=== PATIENT | female | born 1960 | race Caucasian/White ===

== ENCOUNTER → 2018-07-22 | Outpatient (CLI) | payer BC ==
--- NOTE | 2018-07-22 18:27 | RADIOLOGY IMAGING REPORT ---
FACILITY: [facility] - [place] PATIENT NAME: Shira Garcia : 1960 MR: [id number] V: [id number] EXAM DATE: ORDERING PHYSICIAN: NATHALIE PENG TECHNOLOGIST: Location: [facility] - [place] Patient: Shira Garcia : 1960 Visit/Account:[id number] Date of Sevice: 07/22/2018 ABDOMEN AP ERECT AND/OR DECUB History: Left lower quadrant pain with change in stool caliber. Comparison study: None. Findings: Chest: There is no abnormality in either lung base. ABDOMEN: There are no dilated loops of large or small bowel suggest ileus or obstruction. The bladde r appears distended. The bony structures are unremarkable. IMPRESSION: 1. Nonspecific bowel gas pattern without findings of ileus or obstruction. Report Dictated By: Lloyd Hoyt MD at 07/22/2018 6:21 PM Report E-Signed By: Lloyd Hoyt MD at 07/22/2018 6:22 PM WSN:[email or web address]
== END ==
LOC: RAD 16:45
PROVIDERS: ATTEND Nurse Practitioner Family
DX: R10.32 Left lower quadrant pain (principal)
CPT/HCPCS: 74019

== ENCOUNTER → 2018-08-04 | Outpatient (CLI) | payer BC ==
[~2018-08-04] MED LIST: IOPAMIDOL 76% 150 ML INFUS BTL 150 ML ONE
[2018-08-04 07:54] LABS: PLATELET COUNT, AUTOMATED 439 K/uL (150-450)
== END ==
LOC: CT 02:04
PROVIDERS: ATTEND Nurse Practitioner Family
DX: R10.32 Left lower quadrant pain (principal)
CPT/HCPCS: 36415; 85025; Q9967; 82040; 82247; 82310; 82374; 82435; 82565; 82947; 84075; 84132; 84155; 84295; 84450; 84460; 84520

== ENCOUNTER → 2018-08-12 | Outpatient (CLI) | payer BC ==
--- NOTE | 2018-08-12 09:43 | RADIOLOGY IMAGING REPORT ---
FACILITY: [facility] PATIENT NAME: Shira Garcia : 1960 MR: [id number] V: [id number] EXAM DATE: ORDERING PHYSICIAN: NATHALIE PENG TECHNOLOGIST: Location: [facility] - [place], [place] Patient: Shira Garcia : 1960 Visit/Account:[id number] Date of Sevice: 08/12/2018 CT ABDOMEN PELVIS W/ CON HISTORY: Left lower quadrant pain and constipation TECHNIQUE: Following administration of IV contrast contiguous axial images acquired through the abdom en/pelvis. Coronal and sagittal reformatting also performed.Dose Lowering Technique One of the following dose optimization techniques was utilized in the performance of this exam: Autom ated exposure control; adjustment of the mA and/or kV according to the patient's size; or use of an i terative reconstruction technique. Specific details can be referenced in the facility's radiology C T exam operational policy. CONTRAST: 75 mL Isovue-370 COMPARISON: None. FINDINGS: Visualized lung bases: Calcified granulomas Hepatobiliary: Mild hepatomegaly Spleen: Calcified granulomas Adrenals: Negative. Pancreas: There is a 9 x 6 mm fatty lesion in the head of the pancreas Kidneys ureters or bladder: Negative. Genitalia: There is a huge complex pelvic mass extending out of the pelvis with cephalad extension t owards the left. This mass measures approximately 14.6 cm in width approximately 15.4 cm in height a nd approximately 11.4 cm in AP dimension the mass contains solid enhancing components and cystic comp onents normal-appearing uterus is not identified and appears to be completely distorted by the mass GI: There is marked mass effect on the sigmoid colon which is displaced towards the right of midline and drapes over the superior aspect of the pelvic mass. There is no evidence of bowel obstruction B y the large pelvic mass Vessels/spaces/nodes: There are numerous dilated vessels within the pelvis and dilatation of the jina cooper veins bilaterally. The left gonadal vein is duplicated and drains into both the left renal vein and the splenic vein there are small bilateral external iliac lymph nodes all measuring less than 1 cm Bones/soft tissues: Negative. Additional findings: None pertinent. IMPRESSION: There is a huge complex pelvic mass as described above producing extensive mass effect on the sigmoid colon which is displaced to the right of midline and drapes superiorly over this mass.. This findin gs extremely concerning for malignancy There is a 9 x 6 mm fatty lesion in the head of the pancreas. This likely represents an incidental l ipoma. Other considerations although much less likely would be a dermoid or liposarcoma. Report Dictated By: Eliza Trimble MD at 08/12/2018 9:06 AM Report E-Signed By: Eliza Trimble MD at 08/12/2018 9:39 AM WSN:[email or web address]
== END ==
LOC: CT 01:33
PROVIDERS: ATTEND Nurse Practitioner Family
DX: R91.8 Other nonspecific abnormal finding of lung field (principal); R16.0 Hepatomegaly, not elsewhere classified; D73.89 Other diseases of spleen; R19.09 Other intra-abdominal and pelvic swelling, mass and lump
CPT/HCPCS: 74177; Q9967

== ENCOUNTER → 2018-08-14 | Outpatient (CLI) | payer BC ==
[2018-08-14 16:12] LABS: PLATELET COUNT, AUTOMATED 487 K/uL (150-450)
--- NOTE | 2018-08-14 18:36 | EKG ---
FACILITY: [facility] PATIENT NAME: RAMESH SHELTON : [id number] MR: [id number] V: [id number] EXAM DATE: ORDERING PHYSICIAN: BON COATES TECHNOLOGIST: Test Reason : R19.00, Z01.818 Blood Pressure : / mmHG Vent. Rate : 073 BPM Atrial Rate : 073 BPM P-R Int : 132 ms QRS Dur : 088 ms QT Int : 394 ms P-R-T Axes : 072 033 048 degrees QTc Int : 434 ms Normal sinus rhythm Possible Left atrial enlargement Septal infarct , age undetermined No ST-T abnormalities No previous ECGs available Confirmed by TORITO WHITAKER ([id number]) on 08/14/2018 9:12:46 PM Referred By: Confirmed By:TORITO WHITAKER
== END ==
LOC: LAB 15:33
PROVIDERS: ATTEND Nurse Practitioner Family
DX: Z01.818 Encounter for other preprocedural examination (principal); R19.00 Intra-abdominal and pelvic swelling, mass and lump, unspecified site
CPT/HCPCS: 36415; 82040; 82247; 82310; 82374; 82435; 82565; 82947; 84075; 84132; 84155; 84295; 84450; 84460; 84520; 85025; 86304; 86850; 86870; 86900; 86901; 93005

== ENCOUNTER → 2018-09-15 | Emergency (ER) | payer BC ==
[~2018-09-15] MED LIST changes: +ALLERGY SHOTS SC; -IOPAMIDOL 76% 150 ML INFUS BTL 150 ML ONE; +LORA-630 PO; +ONDA4TAB9 PO; +PROC-5 PO
--- NOTE | 2018-09-16 09:41 | NUR ---
Nurse returned a call from the patient yesterday @ 1114. She stated that she had begun to develop a "brown vaginal discharge" on Saturday last week. She states that now she is certain that she is "passing fecal matter out of her vagina". Nurse advised her to contact her surgeon in [place] immediately. She stated that she had called and left a message and was waiting for a return call. Nurse advised her to call again and notify them that the call was urgent. Nurse also advised her that if she had not hear from her surgeon's office by close of day today that she should go into the ER. She verbalized understanding and agreed with the plan of care. September 16 @ 0915: Nurse called patient's cell this morning and her daughter, Anamaria, answered. She stated that the [facility] ER had recommended that she go to [facility] (where her surgery was performed). The daughter stated that her mom was admitted and that the plan was for surgery this evening. She stated that she needed to contact Dr. Billy's office and cancel the port placement scheduled for 09/18/18. The nurse stated that she would take care of that for them. Nurse also stated that she would call and check on them later this week. The daughter verbalized understanding.
--- NOTE | 2018-10-09 07:44 | ER Report ---
History and Physical Time Seen By MD: 07:43 HPI/ROS CHIEF COMPLAINT: Postop complication HISTORY OF PRESENT ILLNESS: Patient is a 4-year-old female status post vaginal procedure an outside facility came in with a report of discharge of brown possible fecal matter from her vagina had called her doctor sent her here to the emergency department patient's denying any additional pain at this time as of this started about 24-48 hours prior to presentation REVIEW OF SYSTEMS: Respiratory: No cough, no dyspnea. Cardiovascular: No chest pain, no palpitations. Gastrointestinal: No vomiting, no abdominal pain. Musculoskeletal: No back pain. Remainder of the 14 system rev: Yes Allergies: Coded Allergies: adhesive tape (Verified Allergy, Intermediate, HIVES,BLISTERS TURNS INTO SORES, 09/15/18) Uncoded Allergies: CONTRAST IODINE (Allergy, Severe, MOUTH,TONGUE,LIPS TINGLE, 09/15/18) Home Meds Active Scripts Prochlorperazine Maleate (PROCHLORPERAZINE MALEATE) 10 Mg Tablet, 10 MG PO Q 6H PRN for NAUSEA/VOMITING for 10 Days, #30 TAB 0 Refills Take 1 Tablet PO Q 6 Hours PRN chemo-induced N/V Prov:JOO MAURER APRN,STORE HOST 10/07/18 Lorazepam (LORAZEPAM) 0.5 Mg Tablet, 0.5 MG PO Q 8 hours PRN for NAUSEA/VOMITING for 10 Days, #30 MG 0 Refills Take 1 or 2 tabs Q 8 hours PRN chemo-induced N/V or anxiety Prov:JOO MAURER APRN,STORE HOST 10/07/18 Ondansetron 4 Mg Odt (ONDANSETRON 4 MG ODT) 4 Mg Tab.rapdis, 8 MG PO ONCE PRN for NAUSEA/VOMITING for 7 Days, #20 TAB 0 Refills Take total of 8 mg (or two 4 mg Tabs) ODT SL Q 8 hours PRN chemo-induced N/V Prov:JOO MAURER APRN, FNP 10/07/18 Reported Medications [Allergy Shots] No Conflict Check, 2 SC 2XW 09/15/18 Reviewed Nurses Notes: Yes Old Medical Records Reviewed: Yes Hx Smoking: No Smoking Status: Never Smoker Hx Alcohol Use: Yes Physical Exam General Appearance: The patient is alert, has no immediate need for airway protection and no current signs of toxicity. [ ] Eyes: Pupils equal and round no injection. Respiratory: Chest is non tender, lungs are clear to auscultation. Cardiac: regular rate and rhythm [ ] Gastrointestinal: Abdomen is soft and non tender, no masses, bowel sounds normal. Musculoskeletal: Neck: Neck is supple and non tender. Extremities have full range of motion and are non tender. Skin: No rashes or lesions. Pelvic exam deferred per patient DIFFERENTIAL DIAGNOSIS: After history and physical exam differential diagnosis was considered for fistula Medical Decision Making ED Course/Re-evaluation ED Course ED course 58-year-old female who presented emergency department today with a complaint of fecal matter from her vagina status post procedure most likely has a fistula contacted the surgeon who performed the procedure he did not want any additional testing or done here in the emergency department once her to become immediately to the clinic patient was discharged accordingly Decision to Disposition Date: October 09, 2018 Decision to Disposition Time: 07:44 Depart Departure Impression: Primary Impression: Vaginal fistula Additional Impression: Recto-vaginal fistula Condition: Condition Unchanged Disposition: HOME OR SELF-CARE Referrals: NATHALIE PENG APRN (PCP) Problem Qualifiers VON PHIPPS MD October 09, 2018 07:44
== END ==
LOC: ER 11:53
DX: N82.3 Fistula of vagina to large intestine (principal)
CPT/HCPCS: 99281

== ENCOUNTER 2018-12-08 10:55 | Outpatient (RCR) | payer BC ==
[2018-09-11 15:02] VITALS: BP 105/64
--- NOTE | 2018-09-11 22:05 | ONCOLOGY CONSULTATION ---
EVENT DATE: September 11, 2018 REFERRING PHYSICIAN Tammy Lewis APRN REASON FOR CONSULTATION Evaluation and management of ovarian cancer. ONCOLOGY HISTORY Patient is a 58-year-old female who presented with abdominal pain, and the patient had a CT of the abdomen done on the August, which showed a huge complex pelvic mass extending out of the pelvis. The mass was 14.6 cm x 15.4 cm x 11.4 cm. Her CA-125 done on the August was 1566. Patient has been evaluated by Dr. Pravin Kennedy, and she had radical ovarian carcinoma debulking procedure with total abdominal hysterectomy, bilateral salpingo- oophorectomy, and generalized tumor debulking of the abdomen and pelvis, with total omentectomy, with multiple large bowel tumor excisions without bowel serosa repair. The surgery started by laparoscopic da Mike robotic laparoscopy with multiple peritoneal excisions, but after that, patient had open laparotomy because the left ureter was not seen through the laparoscopic surgery. Her pathology from the surgery came back positive for adenocarcinoma, consistent with high-grade serous type. The sigmoid serosa was positive for metastatic carcinoma. The hysterectomy, the cervix showed positivity for adenocarcinoma with high-grade serous features. Myometrium showed leiomyoma and serosal involvement by poorly differentiated adenocarcinoma. So, the patient's tumor was staged as stage IIIC given that it involves both the pelvis and the abdomen. PAST MEDICAL HISTORY 1. Endometriosis, status post laparoscopic surgery x2. 2. Irritable bowel syndrome. 3. Celiac disease. 4. History of thyroid nodules. 5. Left breast papilloma, status post resection. PAST SURGICAL HISTORY 1. 1991. 2. Appendectomy 1967. 3. Tonsillectomy 1967. 4. Laparoscopy x3 in 1987, 1989, and 1991. 5. Left breast papilloma resection in 2008. FAMILY HISTORY Mother had breast cancer at age 60. SOCIAL HISTORY Patient is with three children. 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 Denies any abuse of tobacco, alcohol, or drugs, but she drinks a glass of wine nearly once a month. CURRENT MEDICATIONS None. ALLERGIES TAPE which causes hives and IODINE. REVIEW OF SYSTEMS CONSTITUTIONAL: No appetite or weight change. No fever, chills, or sweating. No recent infection. HEENT: Ears: No tinnitus or hearing problem. Nose: No nasal discharge or epistaxis. Throat: No sore throat or mouth ulcers. Eyes: No diplopia or visual changes. RESPIRATORY: No shortness of breath. No cough, expectoration, or hemoptysis. CARDIOVASCULAR: No chest pain, orthopnea, or paroxysmal nocturnal dyspnea (PND). No edema. No palpitations. GASTROINTESTINAL: No nausea or vomiting. No diarrhea or constipation. No change in bowel movements. No heartburn or swallowing difficulties. No abdominal pain. No jaundice. No hematemesis, melena, or rectal bleeding. GENITOURINARY: No hematuria or dysuria. MUSCULOSKELETAL: No pain in the muscles, joints, or bones. NEUROLOGIC: No tingling or numbness in the hands or feet. No headaches or convulsions. HEMATOLOGIC/LYMPHATIC: No bleeding or easy bruising. She has weakness and fatigue after her surgery, but other than that, she is doing really very well. No enlarged lymph nodes. SKIN: No skin rash or lumps. PSYCHIATRIC: No anxiety or depression. PHYSICAL EXAMINATION GENERAL: Looks stable. Well developed, well nourished, and in no acute distress. VITAL SIGNS: Blood pressure 105/64, pulse 96 per minute, respirations 16 per minute, temperature 97.3, pulse ox 93% on room air. HEENT: Head: Atraumatic. No sinus tenderness to palpation. Eyes: No icterus or conjunctivitis. Mouth and Throat: No oral thrush or mucositis. NECK: Supple. No cervical or supraclavicular lymphadenopathy. LUNGS: Clear to auscultation and percussion bilaterally. HEART: Regular rate and rhythm. No gallops, murmurs, clicks, or rubs. ABDOMEN: Soft and lax. No tenderness. No hepatosplenomegaly. No masses. EXTREMITIES: No cyanosis, clubbing, or edema. LYMPHATICS: No peripheral lymphadenopathy. NEUROLOGIC: Conscious, alert, and oriented times three. No focal motor or sensory deficits. PSYCHIATRIC: Mood and affect appear normal. SKIN: No skin rash, bruise, or purpuric eruption. 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 I had a long discussion with the patient and her today regarding further management. I am planning to treat her with six cycles of carboplatin and Taxol, which are the National Comprehensive Cancer Network (NCCN) guideline recommendations and the standard of care. I spent a long time with them explaining the plan of management and the side effects expected from chemotherapy. Patient was offered also for venous access, either peripherally inserted center catheter line or central port, and she elected to have a central port. For placement of the central port, I am planning to refer the patient to Dr. Billy to do that. I am planning to start her treatment next week with carboplatin and Taxol. I am planning to check her blood counts every week after starting treatment, and her treatment will be repeated every three weeks. I will consider treatment with Neulasta if the patient develops neutropenia during her treatment. I plan to check her tumor marker before we start her chemotherapy. As ovarian cancer now has option of the PARP inhibitors, but those are for patients who carry the mutations of BRCA1 and BRCA2, I am planning also to check that for her. I will see the patient in a week to start her chemotherapy with carboplatin and Taxol after placement of the central port. PLAN 1. Surgical consult for placement of central port. 2. CBC, chem panel, CA-125, and genetic mutation with BRCA1 and BRCA2 prior to starting her treatment. 3. Patient to return in a week to start her chemotherapy with carboplatin and Taxol. 4. Patient to contact us for any new concerns or complaints. [facility]
[2018-10-07 11:39] VITALS: BP 111/67
--- NOTE | 2018-10-08 14:42 | ONCOLOGY CHEMO TEACHING ---
EVENT DATE: October 07, 2018 DIAGNOSES 1. Stage IIIC poorly differentiated adenocarcinoma, high-grade. 2. Recent colovesicular fistula, status post ostomy placement. The patient is seen today for chemotherapy teaching. A total of 60 minutes was spent with her, 100% of which was [id number] counseling. HISTORY OF PRESENT ILLNESS Shira is a 58-year old woman with stage IIIC ovarian adenocarcinoma. She recently saw us and plan was made to initiate chemotherapy with carbo/Taxol. She had her port placed on September 18, 2018. In the interim, patient apparently began to have fecal matter expel vaginally and was seen in emergency and diagnosed with colovesicular fistula. She required immediate surgery, which was done on September 18, 2018, along with port placement. She now has ileostomy placement. Plan is for her to have ostomy reversal post treatment. She follows up with Dr. Pravin Kennedy, HEALTH PHYSICS TECHNICIAN/ONC in [place]. She reports that she overall has been managing pretty well with her new ostomy. She is very concerned about chemotherapy and tells me that she has significant dietary restrictions due to her Celiac disease as well as her IBS. She tells me that she had Celiac disease diagnosed approximately 20 years ago, endometriosis 40 years ago as well as IBS. She cannot take any foods that have corn. She tells me that she cannot even take Tums for indigestion as there is corn in Tums as well as food coloring that she is sensitive to GI hui. She is accompanied today by her . She is scheduled to follow up with Dr. Huizar later this week on October 09, 2018. Her surgery and ostomy placement were done after their last visit. ONCOLOGY HISTORY Patient is a 58-year-old female who presented with abdominal pain, and the patient had a CT of the abdomen done on the August, which showed a huge complex pelvic mass extending out of the pelvis. The mass was 14.6 cm x 15.4 cm x 11.4 cm. Her CA-125 done on the August was 1566. Patient has been evaluated by Dr. Pravin Kennedy, and she had radical ovarian carcinoma debulking procedure with total abdominal hysterectomy, bilateral salpingo- oophorectomy, and generalized tumor debulking of the abdomen and pelvis, with total omentectomy, with multiple large bowel tumor excisions without bowel serosa repair. The surgery started by laparoscopic da Mike robotic laparoscopy with multiple peritoneal excisions, but after that, patient had open laparotomy because the left ureter was not seen through the laparoscopic surgery. Her pathology from the surgery came back positive for adenocarcinoma, consistent with high-grade serous type. The sigmoid serosa was positive for metastatic carcinoma. The hysterectomy, the cervix showed positivity for adenocarcinoma with high-grade serous features. Myometrium showed leiomyoma and serosal involvement by poorly differentiated adenocarcinoma. So, the patient's tumor was staged as stage IIIC given that it involves both the pelvis and the abdomen. PAST MEDICAL HISTORY 1. Endometriosis, status post laparoscopic surgery x2. 2. Irritable bowel syndrome. 3. Celiac disease. 4. History of thyroid nodules. 5. Left breast papilloma, status post resection. PAST SURGICAL HISTORY 1. 1991. 2. Appendectomy 1967. 3. Tonsillectomy 1967. 4. Laparoscopy x3 in 1987, 1989, and 1991. 5. Left breast papilloma resection in 2008. FAMILY HISTORY Mother had breast cancer at age 60. SOCIAL HISTORY Patient is with three children. She is retired from [employer] business. Denies any abuse of tobacco, alcohol, or drugs, but she drinks a glass of wine nearly once a month. CURRENT MEDICATIONS 1. Multivitamin daily. 2. Vitamin D3 daily. 3. Vitamin B daily. 4. Magnesium oxide daily. ALLERGIES TAPE which causes hives and IODINE. DISCUSSION 1. A total of 60 minutes was spent in counseling today, 100% of which was face to face. At today's chemotherapy teaching session we discussed her diagnosis as well as the planned chemotherapy regimen and toxicities associated with carboplatin/Taxol given every 21 days x6 cycles. Neulasta will be given on day #2 of each cycle. Handouts of each drug were provided and reviewed in detail. 2. Side effects and toxicities of chemotherapy agents included, but were not limited to: A. Bone marrow suppression, specifically neutropenia. She is instructed to contact our offices with any signs of infection. CBC will be monitored routinely. We discussed common sense approaches including routine hand washing and avoidance of crowds/sick people if neutropenic. B. GI side effects. Discussed the possibility of nausea, vomiting, diarrhea and constipation. She will receive IV antiemetics and will be prescribed antiemetics for home use. If she were to have diarrhea, recommended Imodium. If she were to have constipation, recommended Senna-S or Miralax routinely. Further interventions will be made based on side effects. C. side effects. Discussed the importance of adequate hydration (minimum 8 cups of fluid per day) and emptying the bladder on a regular basis. IV hydration can be scheduled as needed. D. Mouth sores. Recommended salt water or baking soda gargles as needed. E. Skin toxicity. Discussed that chemotherapy was very drying to the skin and mucous membranes. Recommended routine moisturizing as well as sun protection. F. Neurotoxicity. Discussed symptoms of peripheral neuropathy. She will be monitored of these symptoms and will notify us if progressive. G. Alopecia. Discussed that we do have local resources here in our clinic for cranial prosthesis. H. Fatigue. Discussed that this is one of the most common complaints of patients undergoing chemotherapy. I have encouraged her to remain as active as possible, taking frequent rests as needed. I. Infusion reaction. Reviewed IV premedications. She will be monitored closely during infusions. J. Reproductive Health: Discussed importance of preventing while on chemotherapy. Discussed control options and fertility preservation. Also, to abstain from sexual intercourse for 2-3 days after chemotherapy administration. 3. I have instructed the patient to call our office if she is prescribed any new medications. It is recommended that multiple supplements or herbal medications may not be taken as these may interfere with the action of the chemotherapy. 4. Discussed dietary issues associated with chemotherapy including anorexia and changes in taste. A handout of nutrition information is given. 5. Office contact information ([phone]) is given. I have encouraged the patient to call with any issues regarding treatment. 6. A tour of the infusion room is given. She is given a packet of information including all of the above. 7. Central access: Patient has newly placed right chest wall port-a-cath, which is healing well. This has been in place now for at least a couple of weeks. She has EMLA cream, which was prescribed by her surgeon. Discussed the best way to place this on and timing, at least approximately one hour prior to visit. 8. All of patient's home antiemetics, to consist of Zofran OTC, prochlorperazine and Lorazepam were electronically prescribed by me today to [facility]. She will bring these in with her at the start of chemotherapy next week so we can help number these so that patient is aware of when to take these. 9. Support/social media strategist: Patient expressed to me that she feels that she needs the help of several support groups to include an ostomy support group, cancer support group as well as a caregiver support group. I discussed with patient that I will discuss this with her social media strategist, Hollie, as she is our first resource for this. I did write orders today for all three of those referrals to include ostomy support group, cancer support group and caregiver support group. 10. Patient is managing her ostomy well but does have some anxiety about this. I have written orders today a wound ostomy care nurse/ WOCN, referral. Patient was quite pleased with this and stated that this will make her feel better mentally. 11. I will alert nursing staff that patient does have many sensitivities to tape and adhesive and paper tape seems to work well for her. Adhesive tape is listed as an allergy in her chart. 12. Patient is aware that she will need to follow up with Chata Trotter NP, for a standard one week followup toxicity check after initiating her first cycle of chemotherapy. 13. Patient follows up with Dr. Juarez, her PCP, and she was quite distressed about still being able to see him and I explained to patient that he will still be her PCP. [facility]
[2018-10-09 11:24] VITALS: BP 116/65
--- NOTE | 2018-10-09 14:18 | [facility] ONCOLOGY NOTE ---
EVENT DATE: October 09, 2018 DIAGNOSES 1. 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 2. Colovesical fistula, status post ostomy. CHIEF COMPLAINT Patient is here today for followup of her ovarian cancer. ONCOLOGY HISTORY Patient is a 58-year-old female who presented with abdominal pain, and the patient had a CT of the abdomen done on the August, which showed a huge complex pelvic mass extending out of the pelvis. The mass was 14.6 cm x 15.4 cm x 11.4 cm. Her CA-125 done on the August was 1566. Patient has been evaluated by Dr. Pravin Kennedy, and she had radical ovarian carcinoma debulking procedure with total abdominal hysterectomy, bilateral salpingo- oophorectomy, and generalized tumor debulking of the abdomen and pelvis, with total omentectomy, with multiple large bowel tumor excisions without bowel serosa repair. The surgery started by laparoscopic da Mike robotic laparoscopy with multiple peritoneal excisions, but after that, patient had open laparotomy because the left ureter was not seen through the laparoscopic surgery. Her pathology from the surgery came back positive for adenocarcinoma, consistent with high-grade serous type. The sigmoid serosa was positive for metastatic carcinoma. The hysterectomy, the cervix showed positivity for adenocarcinoma with high-grade serous features. Myometrium showed leiomyoma and serosal involvement by poorly differentiated adenocarcinoma. So, the patient's tumor was staged as stage IIIC given that it involves both the pelvis and the abdomen. HISTORY OF PRESENT ILLNESS Patient is here today for followup of her ovarian cancer. Her surgery was complicated with colovesical fistula, status post ostomy placement on September 16, 2018, and central port was placed at the same time at [facility]. She is doing fine currently and totally asymptomatic. She has some concern about the care of her ostomy and patient was referred to the Wound [facility]. She is asymptomatic today. PAST MEDICAL HISTORY 1. Endometriosis, status post laparoscopic surgery x2. 2. Irritable bowel syndrome. 3. Celiac disease. 4. History of thyroid nodules. 5. Left breast papilloma, status post resection. PAST SURGICAL HISTORY 1. 1991. 2. Appendectomy 1967. 3. Tonsillectomy 1967. 4. Laparoscopy x3 in 1987, 1989, and 1991. 5. Left breast papilloma resection in 2008. FAMILY HISTORY Mother had breast cancer at age 60. SOCIAL HISTORY Patient is with three children. 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 Denies any abuse of tobacco, alcohol, or drugs, but she drinks a glass of wine nearly once a month. CURRENT MEDICATIONS None. ALLERGIES TAPE which causes hives and IODINE. REVIEW OF SYSTEMS CONSTITUTIONAL: No appetite or weight change. No fever, chills, or sweating. No recent infection. HEENT: Ears: No tinnitus or hearing problem. Nose: No nasal discharge or epistaxis. Throat: No sore throat or mouth ulcers. Eyes: No diplopia or visual changes. RESPIRATORY: No shortness of breath. No cough, expectoration, or hemoptysis. CARDIOVASCULAR: No chest pain, orthopnea, or paroxysmal nocturnal dyspnea (PND). No edema. No palpitations. GASTROINTESTINAL: No nausea or vomiting. No diarrhea or constipation. No change in bowel movements. No heartburn or swallowing difficulties. No abdominal pain. No jaundice. No hematemesis, melena, or rectal bleeding. GENITOURINARY: No hematuria or dysuria. MUSCULOSKELETAL: No pain in the muscles, joints, or bones. NEUROLOGIC: No tingling or numbness in the hands or feet. No headaches or convulsions. HEMATOLOGIC/LYMPHATIC: No bleeding or easy bruising. She has weakness and fatigue after her surgery, but other than that, she is doing really very well. No enlarged lymph nodes. SKIN: No skin rash or lumps. PSYCHIATRIC: No anxiety or depression. PHYSICAL EXAMINATION GENERAL: Looks stable. Well developed, well nourished, and in no acute distress. VITAL SIGNS: Blood pressure 116/65, pulse 85 per minute, respirations 16 per minute, temperature 97, pulse ox 92% on room air. HEENT: Head: Atraumatic. No sinus tenderness to palpation. Eyes: No icterus or conjunctivitis. Mouth and Throat: No oral thrush or mucositis. NECK: Supple. No cervical or supraclavicular lymphadenopathy. LUNGS: Clear to auscultation and percussion bilaterally. HEART: Regular rate and rhythm. No gallops, murmurs, clicks, or rubs. ABDOMEN: Ostomy bag is noted and no evidence of infection around it. EXTREMITIES: No cyanosis, clubbing, or edema. LYMPHATICS: No peripheral lymphadenopathy. NEUROLOGIC: Conscious, alert, and oriented times three. No focal motor or sensory deficits. PSYCHIATRIC: Mood and affect appear normal. SKIN: No skin rash, bruise, or purpuric eruption. ASSESSMENT 1. 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 I am planning to treat her with adjuvant chemotherapy with six cycles of carboplatin/Taxol, which will start on October 13, 2018. Patient is ready to start her treatment. During her ostomy surgery, the central port was placed on September 16, 2018. Side effects from chemotherapy were explained to the patient. I am planning also to run the BRCA-1 and BRCA-2 genetic testing to see if the patient will be a candidate for PARP inhibitors in the future. I am planning to see her in three weeks after she will start chemotherapy with CBC, chem panel and CA-125. 2. Colovesical fistula, status post ostomy on September 16, 2018. PLAN 1. Chemotherapy with carboplatin/Taxol cycle #1 to start October 13, 2018. 2. CBC, chem panel to be checked weekly. 3. Patient to return in three weeks after starting chemotherapy with CBC, chem panel and CA-125. 4. Consider Neulasta if the patient would develop neutropenia. 5. Patient to contact us for any new concerns or complaints. MTDD
[2018-10-13 09:03] VITALS: BP 126/77
[2018-10-13 09:41] LABS: PLATELET COUNT, AUTOMATED 379 K/uL (150-450)
[2018-10-13] MEDS: DEXAMETHASONE SOD PHOS 10MG/ML IVP PRN (10:25)
[2018-10-13] MEDS: diphenhydrAMINE 50 MG/ML VIAL IVP PRN (10:50)
[2018-10-13] MEDS: FAMOTIDINE 10 MG/ML SDV IVP PRN (10:50)
[2018-10-13] MEDS: PALONOSETRON 0.25 MG/5 ML VIAL IVP PRN (10:56)
[2018-10-13] MEDS: FOSAPREPITANT DIM 150 MG/5 ML 150 MG in NS(*) 0.9% 250 ML BAG 245 ML IVPB PRN (10:57)
[2018-10-13 15:45] VITALS: BP 121/70
--- NOTE | 2018-10-14 03:22 | ONCOLOGY FOLLOW UP NOTE ---
EVENT DATE: October 13, 2018 CHIEF COMPLAINT Followup for stage IIIC ovarian carcinoma. HISTORY OF PRESENT ILLNESS Patient is a 58-year-old female who presents to initiate treatment with carboplatin and Taxol. She had chemo education on 10/07/18. Her port was placed on 09/18/18. Unfortunately she developed a rectovaginal fistula requiring immediate surgery with colostomy placement. She has an appointment today to meet with an ostomy nurse, as she is still struggling somewhat with her appliance. She feels ready to begin treatment today. ONCOLOGY HISTORY Patient presented with abdominal pain and constipation in August 2018. On 08/12/18, CT of the abdomen showed a huge, complex pelvic mass extending out of the pelvis, with initial CA125 of 1566. She underwent radical ovarian carcinoma debulking procedure with total abdominal hysterectomy, bilateral salpingo- oophorectomy, and generalized tumor debulking of the abdomen and pelvis with total omentectomy and multiple large bowel tumor excisions. Pathology was positive for poorly differentiated adenocarcinoma, consistent with high-grade serous type (stage IIIC). Began carboplatin and Taxol on 10/13/18. MEDICAL HISTORY 1. Ovarian carcinoma, August 2018. 2. Endometriosis, status post laparoscopic surgery x2. 3. Irritable bowel syndrome. 4. Celiac disease. 5. History of thyroid nodules. 6. Left breast papilloma. SURGICAL HISTORY 1. Radical ovarian carcinoma debulking with RODRIGO, BSO, and omentectomy, August 2018. 2. , 1991. 3. Appendectomy, 1967. 4. Tonsillectomy, 1967. 5. Laparoscopy x3, 1987, 1989, and 1991. 6. Left breast papilloma resection, 2008. FAMILY HISTORY Four maternal aunts were diagnosed with liver cancer in the ages of 40s to 60s, felt to be environmental. Mother had breast cancer at age 60 and lived until age 90. No family history of ovarian cancer. SOCIAL HISTORY Patient is . They have twin daughters and one son. 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 She does not smoke cigarettes or use illicit drugs. She drinks a glass of wine nearly once a month. MEDICATIONS 1. Multivitamin. 2. Vitamin D3. 3. Vitamin B complex. 4. Magnesium oxide. ALLERGIES 1. TAPE, which causes hives. 2. IODINE. LABORATORY CBC today reveals WBC of 6.6, ANC 4.1, hemoglobin 11.8, hematocrit 36.1, platelets 379,000. CMP was within normal limits. CA125 is pending. IMPRESSION The patient is a 58-year-old female diagnosed with stage IIIC ovarian adenocarcinoma in August 2018. 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 Began carboplatin and Taxol on 10/13/18. 1. Ovarian carcinoma. Cycle #1 of carboplatin and Taxol. She feels ready to begin today's treatment. We reviewed some of the possible side effects. 2. Antiemetics. I reviewed the antinausea regimen with the patient and her . She has her prescriptions and feels ready to use these as indicated. 3. GI. She has struggled with constipation and irritable bowel syndrome. We discussed that chemotherapy can often be constipating, and she will monitor closely for this. 4. Genetic testing. Today, I reviewed the importance of BRCA testing with the patient. We discussed the implications for her children if she were positive, and she agrees to having this drawn today. 5. Followup in one week for toxicity check with CBC. 6. Followup in three weeks for cycle #2 of treatment. MTDD
[2018-10-20 09:43] VITALS: BP 117/83
[2018-10-20 09:48] LABS: PLATELET COUNT, AUTOMATED 350 K/uL (150-450)
[2018-10-20] MEDS: HEPARIN FLSH (PORT) 500 UN/5ML IVP PRN (10:00)
--- NOTE | 2018-10-21 05:23 | ONCOLOGY FOLLOW UP NOTE ---
EVENT DATE: October 20, 2018 CHIEF COMPLAINT Followup for stage IIIC ovarian carcinoma. HISTORY OF PRESENT ILLNESS Patient is a 58-year-old female who is seen today one week after completing her first cycle of carboplatin and Taxol. Overall, she tolerated this well and is grateful that she did not have the side effects that she had anticipated. Ostomy is functioning well and she has had no issues with diarrhea or constipation. She had minimal nausea, but this resolved with oral antiemetics. She also describes some transient neuropathy, which has completely resolved. ONCOLOGY HISTORY Patient presented with abdominal pain and constipation in August 2018. On 08/12/18, CT of the abdomen showed a huge, complex pelvic mass extending out of the pelvis, with initial CA125 of 1566. She underwent radical ovarian carcinoma debulking procedure with total abdominal hysterectomy, bilateral salpingo- oophorectomy, and generalized tumor debulking of the abdomen and pelvis with total omentectomy and multiple large bowel tumor excisions. Pathology was positive for poorly differentiated adenocarcinoma, consistent with high-grade serous type (stage IIIC). Began carboplatin and Taxol on 10/13/18. MEDICAL HISTORY 1. Ovarian carcinoma, August 2018. 2. Endometriosis, status post laparoscopic surgery x2. 3. Irritable bowel syndrome. 4. Celiac disease. 5. History of thyroid nodules. 6. Left breast papilloma. SURGICAL HISTORY 1. Radical ovarian carcinoma debulking with RODRIGO, BSO, and omentectomy, August 2018. 2. , 1991. 3. Appendectomy, 1967. 4. Tonsillectomy, 1967. 5. Laparoscopy x3, 1987, 1989, and 1991. 6. Left breast papilloma resection, 2008. FAMILY HISTORY Four maternal aunts were diagnosed with liver cancer in the ages of 40s to 60s, felt to be environmental. Mother had breast cancer at age 60 and lived until age 90. No family history of ovarian cancer. SOCIAL HISTORY Patient is . They have twin daughters and one son. 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 She does not smoke cigarettes or use illicit drugs. She drinks a glass of wine nearly once a month. MEDICATIONS 1. Multivitamin. 2. Vitamin D3. 3. Vitamin B complex. 4. Magnesium oxide. ALLERGIES 1. TAPE, which causes hives. 2. IODINE. REVIEW OF SYSTEMS A 12-point review of systems is performed and is negative except as stated above. PHYSICAL EXAMINATION VITAL SIGNS: Weight 57.3 kg, BP 117/83, P 92, R 16, temp 97.3, O2 sat 95%. GENERAL: Patient is a well-developed, well-nourished female in no acute distress. HEAD: Atraumatic, normocephalic. EYES: Sclerae anicteric. MOUTH: Slightly dry mucous membranes. No lesions. NECK: Supple. No palpable adenopathy. CARDIOVASCULAR: Heart rate regular, 92 per minute, without murmur, S3 or S4. LUNGS: Clear bilaterally. EXTREMITIES: No edema. NEURO: Nonfocal. LABORATORY CBC today reveals a WBC of 2.9, ANC of 1.5, hemoglobin 11.7, hematocrit 35.6, platelets 350,000. IMPRESSION The patient is a 58-year-old female diagnosed with stage IIIC ovarian adenocarcinoma in August 2018. 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 Began carboplatin and Taxol on 10/13/18. 1. Ovarian carcinoma. Patient is seen one week after receiving cycle #1 of carboplatin and Taxol. She is grateful she tolerated this without issue. 2. Neutropenia. Mild leukopenia and neutropenia. We reviewed neutropenia precautions, and she will notify us if she develops fever or signs of infection. 3. Genetic testing. I received the results of her BRCA testing, which is negative. She will share this information with her twin daughters and son. 4. Followup on 10/27/18 for lab. 5. Followup with Dr. Huizar on 10/31/18. 6. She will be seen on 11/03/18 for cycle #2 of treatment. MTDD
[2018-10-27 09:12] VITALS: BP 112/69
[2018-10-27 09:32] LABS: PLATELET COUNT, AUTOMATED 394 K/uL (150-450)
[2018-10-31 09:27] VITALS: BP 119/68
--- NOTE | 2018-10-31 14:48 | ONCOLOGY FOLLOW UP NOTE ---
EVENT DATE: October 31, 2018 DIAGNOSES 1. 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 2. Colovesical fistula, status post ostomy. CHIEF COMPLAINT Patient is here today for followup of her ovarian cancer on adjuvant chemotherapy with carboplatin and Taxol. This will be cycle #2. ONCOLOGY HISTORY Patient is a 58-year-old female who presented with abdominal pain, and the patient had a CT of the abdomen done on the August, which showed a huge complex pelvic mass extending out of the pelvis. The mass was 14.6 cm x 15.4 cm x 11.4 cm. Her CA-125 done on the August was 1566. Patient has been evaluated by Dr. Pravin Kennedy, and she had radical ovarian carcinoma debulking procedure with total abdominal hysterectomy, bilateral salpingo- oophorectomy, and generalized tumor debulking of the abdomen and pelvis, with total omentectomy, with multiple large bowel tumor excisions, without bowel serosa repair. The surgery started by laparoscopic da Mike robotic laparoscopy with multiple peritoneal excisions, but after that, patient had open laparotomy because the left ureter was not seen through the laparoscopic surgery. Her pathology from the surgery came back positive for adenocarcinoma, consistent with high-grade serous type. The sigmoid serosa was positive for metastatic carcinoma. The hysterectomy, the cervix showed positivity for adenocarcinoma with high-grade serous features. Myometrium showed leiomyoma and serosal involvement by poorly differentiated adenocarcinoma. So, the patient's tumor was staged as stage IIIC given that it involves both the pelvis and the abdomen. CA-125 prior to starting her adjuvant chemotherapy with carboplatin and Taxol was 181. Patient started adjuvant chemotherapy with carboplatin and Taxol on the October. HISTORY OF PRESENT ILLNESS Patient is here today for followup of her ovarian carcinoma on adjuvant chemotherapy with carboplatin and Taxol. She is due for her cycle 2 on the October. Her surgery was complicated with colovesical fistula, status post ostomy placement September 16, 2018, and since her port was placed at the same time at [facility]. She is tolerating the chemotherapy very well so far. Apart from having intermittent neuropathy in her fingers, patient does not have any other complaints currently. She also started to lose her hair after her first cycle of chemotherapy. PAST MEDICAL HISTORY 1. Endometriosis, status post laparoscopic surgery times two. 2. Irritable bowel syndrome. 3. Celiac disease. 4. History of thyroid nodules. 5. Left breast papilloma, status post resection. PAST SURGICAL HISTORY 1. 1991. 2. Appendectomy 1967. 3. Tonsillectomy 1967. 4. Laparoscopy times three in 1987, 1989, and 1991. 5. Left breast papilloma resection in 2008. FAMILY HISTORY Mother had breast cancer at age 60. SOCIAL HISTORY Patient is with three children. She is retired from the [employer] business. Denies any abuse of tobacco, alcohol, or drugs, but she drinks a glass of wine nearly once a month. CURRENT MEDICATIONS None. ALLERGIES TAPE which causes hives and IODINE. REVIEW OF SYSTEMS CONSTITUTIONAL: No appetite or weight change. No fever, chills, or sweating. No recent infection. HEENT: Ears: No tinnitus or hearing problem. Nose: No nasal discharge or epistaxis. Throat: No sore throat or mouth ulcers. Eyes: No diplopia or visual changes. RESPIRATORY: No shortness of breath. No cough, expectoration, or hemoptysis. CARDIOVASCULAR: No chest pain, orthopnea, or paroxysmal nocturnal dyspnea (PND). No edema. No palpitations. GASTROINTESTINAL: No nausea or vomiting. No diarrhea or constipation. No change in bowel movements. No heartburn or swallowing difficulties. No abdominal pain. No jaundice. No hematemesis, melena, or rectal bleeding. GENITOURINARY: No hematuria or dysuria. MUSCULOSKELETAL: No pain in the muscles, joints, or bones. NEUROLOGIC: Patient has intermittent neuropathy in her fingers after she started treatment with Taxol. No headaches or convulsions. HEMATOLOGIC/LYMPHATIC: No bleeding or easy bruising. No weakness or fatigue. No enlarged lymph nodes. SKIN: No skin rash or lumps. PSYCHIATRIC: No anxiety or depression. PHYSICAL EXAMINATION GENERAL: Looks stable. Well developed, well nourished, and in no acute distress. VITAL SIGNS: Blood pressure 119/68, pulse 104 per minute, respirations 16 per minute, temperature 96.6, pulse ox 93% on room air. HEENT: Head: Atraumatic. No sinus tenderness to palpation. Eyes: No icterus or conjunctivitis. Mouth and Throat: No oral thrush or mucositis. NECK: Supple. No cervical or supraclavicular lymphadenopathy. LUNGS: Clear to auscultation and percussion bilaterally. HEART: Regular rate and rhythm. No gallops, murmurs, clicks, or rubs. ABDOMEN: Soft and lax. No tenderness. No hepatosplenomegaly. No masses. EXTREMITIES: No cyanosis, clubbing, or edema. LYMPHATICS: No peripheral lymphadenopathy. NEUROLOGIC: Conscious, alert, and oriented times three. No focal motor or sensory deficits. PSYCHIATRIC: Mood and affect appear normal. SKIN: No skin rash, bruise, or purpuric eruption. DIAGNOSTIC DATA CBC showed white count 3.4, hemoglobin 12.5, hematocrit 38.8, platelets 394,000. Chem panel normal except creatinine 0.5. CA-125 prior to her starting chemotherapy was 181. ASSESSMENT 1. 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 Patient started adjuvant chemotherapy with carboplatin and Taxol on the October. Her initial surgery was complicated with colovesical fistula, status post colostomy placement on the September, and since her port was placed at the same setting. Patient is tolerating chemotherapy very well. Her BRCA1 and BRCA2 genetic testing came back negative. I am planning to proceed with her second cycle of carboplatin and Taxol on the October. I will check her CBC and chemistry panel every week, and I will see her again in three weeks with CBC, chemistry panel, and CA-125 at that time. 2. Colovesical fistula, status post colostomy September 16, 2018. PLAN 1. Chemotherapy with carboplatin/Taxol cycle #2 to start the October. 2. CBC and chem panel to be checked weekly. 3. Patient to return in three weeks with CBC, chem panel, and CA-125. 4. Consider Neulasta if the patient develops neutropenia. 5. Patient to contact us for any new concerns or complaints. MTDD
[2018-11-03 09:28] VITALS: BP 122/73
[2018-11-03] MEDS: NS(*) 0.9% 250 ML BAG 250 ML IVPB PRN ×2 (09:38→10:52)
[2018-11-03] MEDS: HEPARIN FLSH (PORT) 500 UN/5ML IVP PRN ×2 (09:41→11:14)
[2018-11-03] MEDS: DEXAMETHASONE SOD PHOS 10MG/ML IVP PRN (10:52)
[2018-11-03] MEDS: FAMOTIDINE 10 MG/ML SDV IVP PRN (11:13)
[2018-11-03] MEDS: diphenhydrAMINE 50 MG/ML VIAL IVP PRN (11:14)
[2018-11-03] MEDS: PALONOSETRON 0.25 MG/5 ML VIAL IVP PRN (11:14)
[2018-11-03] MEDS: FOSAPREPITANT DIM 150 MG/5 ML 150 MG in NS(*) 0.9% 250 ML BAG 245 ML IVPB PRN (11:37)
[2018-11-10 09:35] VITALS: BP 109/79
[2018-11-10 09:56] LABS: PLATELET COUNT, AUTOMATED 236 K/uL (150-450)
--- NOTE | 2018-11-12 22:02 | ONCOLOGY FOLLOW UP NOTE ---
EVENT DATE: November 10, 2018 CHIEF COMPLAINT Follow up for stage IIIC ovarian cancer. HISTORY OF PRESENT ILLNESS Patient is a 58-year-old female who was seen today as a work-in. She presents for labs and had several questions. She describes an "open area" on her vagina. There is some mild erythema, but no discharge. She has a history of rectovaginal fistula and notes occasional vaginal discharge. Bowels are working well through ostomy. She also noted some clear nipple discharge from the right breast and was concerned about breast cancer. This is not evident at today's exam. She notes some sensitivity in her Port-A-Cath, which has bothered her. ONCOLOGY HISTORY Patient presented with abdominal pain and constipation in August 2018. On 08/12/18, CT of the abdomen showed a huge, complex pelvic mass extending out of the pelvis, with initial CA-125 of 1566. She underwent radical ovarian carcinoma debulking procedure with total abdominal hysterectomy, bilateral salpingo-oophorectomy, generalized tumor debulking of the abdomen and pelvis with total omentectomy, and multiple large bowel tumor excisions. Pathology was positive for poorly differentiated adenocarcinoma, consistent with high-grade serous type (stage IIIC). Began carboplatin and Taxol on 10/13/18. MEDICAL HISTORY 1. Ovarian carcinoma, August 2018. 2. Endometriosis, status post laparoscopic surgery times two. 3. Irritable bowel syndrome. 4. Celiac disease. 5. History of thyroid nodules. 6. Left breast papilloma. SURGICAL HISTORY 1. Radical ovarian carcinoma debulking with RODRIGO, BSO, and omentectomy, August 2018. 2. , 1991. 3. Appendectomy, 1967. 4. Tonsillectomy, 1967. 5. Laparoscopy times three, 1987, 1989, and 1991. 6. Left breast papilloma resection, 2008. FAMILY HISTORY Four maternal aunts were diagnosed with liver cancer in the ages of 40s to 60s, felt to be environmental. Mother had breast cancer at age 60 and lived until age 90. No family history of ovarian cancer. SOCIAL HISTORY Patient is . They have twin daughters and one son. She retired from an [employer] business. She does not smoke cigarettes or use illicit drugs. She drinks a glass of wine nearly once a month. MEDICATIONS 1. Multivitamin. 2. Vitamin D3. 3. Vitamin B complex. 4. Magnesium oxide. ALLERGIES 1. TAPE, which causes hives. 2. IODINE. REVIEW OF SYSTEMS A 12-point review of systems is performed and is negative except as stated above. PHYSICAL EXAMINATION VITAL SIGNS: BP 107/79, P 96, R 16, temp 97.6, O2 sat 95%. GENERAL: Patient is a well-developed, well-nourished female in no acute distress. HEAD: Atraumatic, normocephalic. EYES: Sclerae anicteric. MOUTH: Slightly dry mucous membranes,but no lesions. NECK: Supple. No palpable adenopathy. BREASTS: Limited breast exam done. No discharge noted from right nipple. I have asked her to monitor this and present if it occurs again. CARDIOVASCULAR: Heart rate regular, 96 per minute. LUNGS: Clear bilaterally. CHEST: Port-A-Cath is intact, without evidence of infection. EXTREMITIES: No edema. NEUROLOGIC: Nonfocal. LABORATORY CBC today reveals WBC of 3.1, ANC of 1.8, hemoglobin 12.5, hematocrit 37.3, platelets 236,000. CMP is within normal limits. CA27.29 has decreased from 1566 in August to 147 in October. IMPRESSION The patient is a 58-year-old female diagnosed with stage IIIC ovarian adenocarcinoma in August 2018. 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 Began carboplatin and Taxol on 10/13/18. PLAN 1. Ovarian carcinoma. Patient is seen one week after receiving cycle #2 of carboplatin and Taxol. She continues to tolerate this well. 2. Right nipple discharge. Noted clear discharge from her right nipple. Limited exam is done, but no discharge is noted at this time. She was concerned about breast cancer. She is BRCA1 and BRCA2 negative. 3. . Noted an open area in her vagina. I did not examine her today, but she states that it is mildly erythematous, without any discharge. I have asked her to monitor this. She has a known rectovaginal fistula. 4. Port-A-Cath. I suspect her increased sensitivity is because she is thin. There is no evidence of any issues with Port-A-Cath today. 5. Follow up as scheduled for continued care, earlier if there is a problem. [facility]
[2018-11-17 10:03] LABS: PLATELET COUNT, AUTOMATED 358 K/uL (150-450)
[2018-11-17 10:11] VITALS: BP 147/89
--- NOTE | 2018-11-18 08:24 | ONCOLOGY FOLLOW UP NOTE ---
EVENT DATE: November 17, 2018 CHIEF COMPLAINT Follow up for stage IIIC ovarian cancer. HISTORY OF PRESENT ILLNESS Patient is a 58-year-old female who was seen today in followup. She will be due for cycle #3 of carboplatin and Taxol on November 24, 2018. She is grateful that she is tolerating her treatment well, although is fatigued. She saw her surgeon last week as there was a stitch in her ostomy and this was removed. She is concerned that she may require wound care but I reassured her that we can do this here at the hospital. She describes some minimal neuropathy in her hands and was started on B6 100 mg b.i.d. She has intermittent right nipple discharge, which has been clear. She had a previous lesion on her vagina but this has resolved. ONCOLOGY HISTORY Patient presented with abdominal pain and constipation in August 2018. On 08/12/18, CT of the abdomen showed a huge, complex pelvic mass extending out of the pelvis, with initial CA-125 of 1566. She underwent radical ovarian carcinoma debulking procedure with total abdominal hysterectomy, bilateral salpingo-oophorectomy, generalized tumor debulking of the abdomen and pelvis with total omentectomy, and multiple large bowel tumor excisions. Pathology was positive for poorly differentiated adenocarcinoma, consistent with high-grade serous type (stage IIIC). Began carboplatin and Taxol on 10/13/18. MEDICAL HISTORY 1. Ovarian carcinoma, August 2018. 2. Endometriosis, status post laparoscopic surgery times two. 3. Irritable bowel syndrome. 4. Celiac disease. 5. History of thyroid nodules. 6. Left breast papilloma. SURGICAL HISTORY 1. Radical ovarian carcinoma debulking with RODRIGO, BSO, and omentectomy, August 2018. 2. , 1991. 3. Appendectomy, 1967. 4. Tonsillectomy, 1967. 5. Laparoscopy times three, 1987, 1989, and 1991. 6. Left breast papilloma resection, 2008. FAMILY HISTORY Four maternal aunts were diagnosed with liver cancer in the ages of 40s to 60s, felt to be environmental. Mother had breast cancer at age 60 and lived until age 90. No family history of ovarian cancer. SOCIAL HISTORY Patient is . They have twin daughters and one son. 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 She does not smoke cigarettes or use illicit drugs. She drinks a glass of wine nearly once a month. MEDICATIONS 1. Multivitamin. 2. Vitamin D3. 3. Vitamin B complex. 4. Magnesium oxide. ALLERGIES 1. TAPE, which causes hives. 2. IODINE. REVIEW OF SYSTEMS A 12-point review of systems is performed and is negative except as stated above. PHYSICAL EXAMINATION VITAL SIGNS: BP 147/84, P 85, R 16, temp 98.0, O2 sat 92%. GENERAL: Patient is a well-developed, well-nourished female in no acute distress. HEAD: Atraumatic, normocephalic. EYES: Sclerae anicteric. MOUTH: Moist mucous membranes. NECK: Supple. No palpable adenopathy. LUNGS: Clear bilaterally. CARDIOVASCULAR: Heart rate regular, 84 per minute. EXTREMITIES: No edema. NEUROLOGIC: Nonfocal. LABORATORY CBC today reveals WBC of 3.0, ANC of 0.9, hemoglobin 12.5, hematocrit 37.5, platelets 358,000. CMP is within normal limits. IMPRESSION The patient is a 58-year-old female diagnosed with stage IIIC ovarian adenocarcinoma in August 2018. 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 Began carboplatin and Taxol on 10/13/18. PLAN 1. Ovarian cancer. Patient is seen two weeks after receiving cycle #2 of carboplatin and Taxol. She is tolerating this fairly well. 2. Neutropenia. ANC today is 0.9. We reviewed neutropenia precautions. She will notify us if she develops fever or signs of infection. 3. Ostomy. She relates that a stitch was removed from her ostomy by her surgeon. He felt that this would heal quickly. She has been slightly concerned about this and I reassured her that wound care could be done here if needed. 4. Neuropathy. Describes some minimal neuropathy in her fingertips. She began vitamin B6 100 mg b.i.d. 5. Right nipple discharge. Continue to monitor. She believes this is decreasing. 6. Followup with Dr. Huizar on November 21, 2018. 7. Followup on November 24, 2018 for cycle #3, day 1 of treatment. MTDD
[2018-11-21 09:39] VITALS: BP 129/75
--- NOTE | 2018-11-21 11:58 | [facility] ONCOLOGY NOTE ---
EVENT DATE: November 21, 2018 DIAGNOSES 1. 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 2. Colovesical fistula, status post ostomy. CHIEF COMPLAINT Patient is here today for followup of her ovarian cancer, on adjuvant chemotherapy with carboplatin and Taxol. This will be cycle #3. ONCOLOGY HISTORY Patient is a 58-year-old female who presented with abdominal pain, and the patient had a CT of the abdomen done on the August, which showed a huge complex pelvic mass extending out of the pelvis. The mass was 14.6 cm x 15.4 cm x 11.4 cm. Her CA-125 done on the August was 1566. Patient has been evaluated by Dr. Pravin Kennedy, and she had radical ovarian carcinoma debulking procedure with total abdominal hysterectomy, bilateral salpingo- oophorectomy, and generalized tumor debulking of the abdomen and pelvis, with total omentectomy, with multiple large bowel tumor excisions, without bowel serosa repair. The surgery started by laparoscopic da Mike robotic laparoscopy with multiple peritoneal excisions, but after that, patient had open laparotomy because the left ureter was not seen through the laparoscopic surgery. Her pathology from the surgery came back positive for adenocarcinoma, consistent with high-grade serous type. The sigmoid serosa was positive for metastatic carcinoma. The hysterectomy, the cervix showed positivity for adenocarcinoma with high-grade serous features. Myometrium showed leiomyoma and serosal involvement by poorly differentiated adenocarcinoma. So, the patient's tumor was staged as stage IIIC given that it involves both the pelvis and the abdomen. CA-125 prior to starting her adjuvant chemotherapy with carboplatin and Taxol was 181. Patient started adjuvant chemotherapy with carboplatin and Taxol on the October. HISTORY OF PRESENT ILLNESS Patient is here today for followup of her ovarian carcinoma, on adjuvant chemotherapy with carboplatin and Taxol. This will be her cycle #3, which will be given on November 24, 2018. Patient is doing fine currently. She feels better with her treatment. Apart from having some neuropathy in her fingers of the right hand, patient does not have any other problems. She has actually felt better nearly for over a year. She was suffering and now she is feeling much better. PAST MEDICAL HISTORY 1. Endometriosis, status post laparoscopic surgery times two. 2. Irritable bowel syndrome. 3. Celiac disease. 4. History of thyroid nodules. 5. Left breast papilloma, status post resection. PAST SURGICAL HISTORY 1. 1991. 2. Appendectomy 1967. 3. Tonsillectomy 1967. 4. Laparoscopy times three in 1987, 1989, and 1991. 5. Left breast papilloma resection in 2008. FAMILY HISTORY Mother had breast cancer at age 60. SOCIAL HISTORY Patient is with three children. She is retired from the [employer] business. Denies any abuse of tobacco, alcohol, or drugs, but she drinks a glass of wine nearly once a month. CURRENT MEDICATIONS 1. Prochlorperazine 10 mg every six hours p.r.n. for nausea and vomiting. 2. Lorazepam 0.5 mg tablet every eight hours p.r.n. for nausea and vomiting. 3. Zofran 4 mg orally disintegrated tablets every eight hours p.r.n. for nausea and vomiting. ALLERGIES TAPE which causes hives and IODINE. REVIEW OF SYSTEMS CONSTITUTIONAL: No appetite or weight change. No fever, chills, or sweating. No recent infection. HEENT: Ears: No tinnitus or hearing problem. Nose: No nasal discharge or epistaxis. Throat: No sore throat or mouth ulcers. Eyes: No diplopia or visual changes. RESPIRATORY: No shortness of breath. No cough, expectoration, or hemoptysis. CARDIOVASCULAR: No chest pain, orthopnea, or paroxysmal nocturnal dyspnea (PND). No edema. No palpitations. GASTROINTESTINAL: No nausea or vomiting. No diarrhea or constipation. No change in bowel movements. No heartburn or swallowing difficulties. No abdominal pain. No jaundice. No hematemesis, melena, or rectal bleeding. GENITOURINARY: No hematuria or dysuria. MUSCULOSKELETAL: No pain in the muscles, joints, or bones. NEUROLOGIC: Patient has some numbness in her right hand fingers. HEMATOLOGIC/LYMPHATIC: No bleeding or easy bruising. No weakness or fatigue. No enlarged lymph nodes. SKIN: No skin rash or lumps. PSYCHIATRIC: No anxiety or depression. PHYSICAL EXAMINATION GENERAL: Looks stable. Well developed, well nourished, and in no acute distress. VITAL SIGNS: Blood pressure 147/89, pulse 85 per minute, respirations 16 per minute, temperature 98, pulse ox 92% on room air. HEENT: Head: Atraumatic. No sinus tenderness to palpation. Eyes: No icterus or conjunctivitis. Mouth and Throat: No oral thrush or mucositis. NECK: Supple. No cervical or supraclavicular lymphadenopathy. LUNGS: Clear to auscultation and percussion bilaterally. HEART: Regular rate and rhythm. No gallops, murmurs, clicks, or rubs. ABDOMEN: Soft and lax. No tenderness. No hepatosplenomegaly. No masses. EXTREMITIES: No cyanosis, clubbing, or edema. LYMPHATICS: No peripheral lymphadenopathy. NEUROLOGIC: Conscious, alert, and oriented times three. No focal motor or sensory deficits. PSYCHIATRIC: Mood and affect appear normal. SKIN: No skin rash, bruise, or purpuric eruption. DIAGNOSTIC DATA CBC showed white count 3,000, hemoglobin 12.5, hematocrit 37.5, platelets 358,000. ANC 0.9. Chem panel normal except creatinine 0.5. CA-125 is 147, which is down from 181, which was down from 1,566. ASSESSMENT 1. Stage IIIC adenocarcinoma of the left ovary, status post radical debulking surgery done August 21, 2018, and the tumor was involving both the abdomen and pelvis. Patient started adjuvant chemotherapy with carboplatin and Taxol on October 13, 2018. Her initial surgery was complicated with colovesical fistula, status post colostomy placed on September 16, 2018. Patient actually felt much better on her chemotherapy. She received two cycles so far and her tumor marker dropped from 1,566 to 147. Her BRCA1 and BRCA2 genetic testing came back negative. I am planning to proceed with her third cycle of chemotherapy on November 24, 2018 if her blood work is good at that time. I will see her again in three weeks from now with CBC, chem panel, CA-125. 2. Colovesical fistula, status post colostomy September 16, 2018. PLAN 1. Chemotherapy with carboplatin/Taxol cycle #3 to start on November 24, 2018. 2. CBC and chem panel to be checked weekly. 3. Patient to return in three weeks with CBC, chem panel and CA-125. 4. Consider Neulasta if the patient develops neutropenia. 5. Patient to contact us for any new concerns or complaints. MTDD
[2018-11-24 10:09] VITALS: BP 121/77
[2018-11-24] MEDS: PALONOSETRON 0.25 MG/5 ML VIAL IVP PRN (10:58)
[2018-11-24] MEDS: DEXAMETHASONE SOD PHOS 10MG/ML IVP PRN (10:58)
[2018-11-24] MEDS: NS(*) 0.9% 250 ML BAG 250 ML IVPB PRN (10:59)
[2018-11-24] MEDS: FAMOTIDINE 10 MG/ML SDV IVP PRN (10:59)
[2018-11-24] MEDS: HEPARIN FLSH (PORT) 500 UN/5ML IVP PRN ×2 (11:00→16:50)
[2018-11-24] MEDS: FOSAPREPITANT DIM 150 MG/5 ML 150 MG in NS(*) 0.9% 250 ML BAG 245 ML IVPB PRN (11:32)
[2018-11-24 16:47] VITALS: BP 108/65
[2018-12-01 11:23] LABS: PLATELET COUNT, AUTOMATED 266 K/uL (150-450)
[2018-12-01 11:30] VITALS: BP 129/86
[~2018-12-08] VITALS: Ht 167.1 cm; Wt 58.3 kg
[~2018-12-08 10:55] MED LIST changes: +ALTEPLASE RECOMB 2 MG VIAL IVP PRN; +CARBOPLATIN IVPB ONE; +DEXTROSE 5%(*) 100 ML BAG 100 ML IVPB PRN; +LIDOCAINE/SOD BICARB 8.4% SYR ID PRN; +NS 0.9% IVPB ONE; +NS(*) 0.9% 100 ML BAG 100 ML IVPB PRN; +PACLITAXEL IVPB ONE; +WATER FOR INJ,STERILE 20 ML IVP PRN
[2018-12-08 10:57] VITALS: BP 114/78
[2018-12-08 11:15] LABS: PLATELET COUNT, AUTOMATED 402 K/uL (150-450)
== END 2018-12-09 ==
LOC: SPU 10:55
PROVIDERS: ATTEND Internal Medicine Hematology
DX: Z51.11 Encounter for antineoplastic chemotherapy (principal); C56.2 Malignant neoplasm of left ovary; Z98.890 Other specified postprocedural states; D70.9 Neutropenia, unspecified; G62.9 Polyneuropathy, unspecified
CPT/HCPCS: 36415; 36591; 85025; 85027; 86304; 96367; 96375; 96413; 96415; 96417; 99202; 99212; J1100; J1200; J1453; J1642; J2469; J7040; J7050; J9045; J9267; S0028; 82040; 82247; 82310; 82374; 82435; 82565; 82947; 84075; 84132; 84155; 84295; 84450; 84460; 84520